=== PATIENT | male | born 1990 | race Caucasian/White ===

== ENCOUNTER 2023-09-02 18:59 | Emergency (ER) | payer MEDICAID, SELFPAY ==
--- NOTE | ~2023-09-02 | CT_ITS ---
EXAMINATION: CT ABDOMEN AND PELVIS WITHOUT CONTRAST CLINICAL INFORMATION: Right flank pain. COMPARISON: None available. TECHNIQUE: Multidetector volumetric imaging was performed from the superior aspect of the liver through the pubic symphysis. Sagittal and coronal reformatted images were obtained on the technologist's workstation. This CT examination was performed using dose optimization techniques as appropriate, variously including the following: *Automated exposure control *Adjustment of mA and/or kV according to patient size (this includes techniques or standardized protocols for targeted exams where dose is matched to indication/reason for exam; i.e. extremities or head) *Use of iterative reconstruction technique DLP: 376 mGy-cm FINDINGS: LUNG BASES: The visualized lung bases are unremarkable. LIVER, GALLBLADDER, AND BILIARY TREE: The liver is normal in size, shape, and attenuation. No focal hepatic lesion or biliary ductal dilatation is present. The gallbladder is unremarkable with no evidence of radiopaque gallstones, gallbladder wall thickening, or obvious pericholecystic inflammatory changes. PANCREAS: Unremarkable. SPLEEN: Unremarkable. ADRENAL GLANDS: Unremarkable. KIDNEYS AND URETERS: The kidneys are normal in size, shape, and attenuation. There is a 2.8 cm fluid attenuation, simple appearing right renal cyst in the lower pole. No recommended imaging follow-up. No hydronephrosis, hydroureter, or calculi seen. No perinephric stranding. BLADDER: Unremarkable. GASTROINTESTINAL TRACT: Stomach, small bowel, and colon are normal in caliber. Moderate volume of stool throughout the colon. No bowel wall thickening or surrounding inflammatory changes. Appendix is normal. No intraperitoneal free fluid or free air. ABDOMINAL WALL: No significant hernia is appreciated. LYMPH NODES: Normal. VASCULAR: Unremarkable. PELVIC VISCERA: Unremarkable. OSSEOUS STRUCTURES: Unremarkable. CT/CT abdomen pelvis wo IV con IMPRESSION: No acute intra-abdominal or intrapelvic abnormalities. Moderate volume of stool throughout the colon. Fleischner guidelines were followed.
--- NOTE | ~2023-09-02 | XR_ITS ---
EXAMINATION: XR LUMBOSACRAL SPINE CLINICAL INFORMATION: Lower back pain. COMPARISON: None available. TECHNIQUE: Three views of the lumbosacral spine. FINDINGS: Straightening of the normal lumbar lordosis which may be positional or related to muscle spasm. No acute fracture or subluxation. No loss of vertebral body or intervertebral disc height. No concerning lytic or blastic osseous lesion. No abnormal soft tissue calcification. XR/XR lumbar spine 2-3V IMPRESSION: Straightening of the normal lumbar lordosis which may be positional or related muscle spasm.
[2023-09-02 19:00] VITALS: BP 115/67; PULSE 64; RESP 16; TEMP 37.4; O2SAT 99; BMI 19.6
--- NOTE | 2023-09-02 19:02 | ED.GENADULT ---
HPI - General Adult General Chief complaint: Back Pain/Injury Stated complaint: lower back pain Time Seen by Provider: 09/02/23 21:08 Related Data Allergies Allergy/AdvReac Type Severity Reaction Status Date / Time No Known Allergies Allergy Unverified 06/30/20 16:13 [facility] Social History Alcohol intake: never Smoked in Last 30 Days: No Use of substances other than those prescribed or required for medical reasons: No Advance Directives: No Advance Directives Information Provided: No Physical Exam ED Vital Signs: Vital Signs - 24 hr 09/02/23 19:00 09/02/23 21:31 09/03/23 00:16 Temperature 99.3 F 98.3 F 98.2 F Pulse Rate 64 76 72 Respiratory Rate 16 20 20 Blood Pressure 115/67 132/76 124/75 Pulse Oximetry 99 100 98 Oxygen Delivery Method Room Air Room Air Room Air BMI result Body Mass Index 19.6 Course Course Course Narrative: RME performed by Bev Conley PA-C. Patient is a 32 year old assigned male at presenting to the emergency department with right sided flank pain. Labs ordered. Patient placed back in the waiting room pending room availability and results. Patient was seen and dispositioned by Dr. Love. Please refer to his note from 09/02/2023. Medical Decision Making Lab Data 09/02/23 20:07 09/02/23 20:07 Labs: Lab Results 09/02/23 Range/Units 20:07 WBC 9.2 (4.8-10.8) X10*3/uL RBC 4.83 (4.60-5.80) X10*6/uL Hgb 14.3 (14.0-18.0) g/dl Hct 41.3 L (42.0-52.0) % MCV 85.5 (80.0-98.0) fL MCH 29.6 (27.0-33.0) pg MCHC 34.6 (31.0-36.0) g/dl RDW 12.7 (11.0-16.0) % Plt Count 227 (160-400) X10*3/uL MPV 10.7 (9.4-12.4) fL Immature Gran % (Auto) 0.3 (0.0-0.4) % Neut % (Auto) 74.0 H (45-73) % Lymph % (Auto) 16.0 L (20-40) % [place] % (Auto) 8.3 (2-11) % Eos % (Auto) 0.7 (0-4) % Baso % (Auto) 0.7 (0-2) % Lymph # (Auto) 1.5 (1.2-4.9) X10*3/uL [place] # (Auto) 0.8 (0.1-1.2) X10*3/uL Eos # (Auto) 0.1 (0.0-0.4) X10*3/uL Baso # (Auto) 0.1 (0.0-0.2) X10*3/uL Abs Immat Gran (auto) 0.03 (0.00-0.03) X10*3/uL Absolute Neuts (auto) 6.8 (2.0-8.3) x10*3/uL Absolute Nucleated RBC 0.000 (0.0-0.012) X10*3/uL Nucleated RBC % (auto) 0.0 (0.0-0.2) /100WBC Sodium 140 (135-145) mmol/L Potassium 4.1 (3.3-5.1) mmol/L Chloride 104 (96-108) mmol/L Carbon Dioxide 31 H (22-29) mmol/L Anion Gap 9 L (12-20) BUN 10 (9-16) mg/dL Creatinine 0.90 (0.5-1.4) mg/dL Estim Creat Clear Calc 111.3 Estimated GFR > 60 Random Glucose 88 (60-115) mg/dL Calcium 9.3 (8.4-10.2) mg/dL Magnesium 2.0 (1.6-2.6) mg/dL Total Bilirubin 0.4 (0.0-1.0) mg/dL AST 14 (5-37) U/L ALT 13 (0-40) U/L Alkaline Phosphatase 75 (39-117) U/L Total Protein 7.9 (6.5-8.0) g/dL Albumin 4.3 (3.5-5.0) g/dL Urine Color Yellow Urine Appearance Clear Urine pH 8.5 (5.0-9.0) Ur Specific [place] 1.015 (1.005-1.025) Urine Protein Negative (Neg-Trace) mg/dL Urine Glucose (UA) Negative (Negative) mg/dL Urine Ketones Negative (Negative) mg/dL Urine Blood Negative (Negative) Urine Nitrite Negative (Negative) Ur Leukocyte Esterase Negative (Negative) Discharge Plan Discharge Clinical Impression: Acute flank pain, Constipation Patient Disposition: Home, Self-Care Instructions: Flank Pain (ED) Referrals: Physician,None [Primary Care Provider] - 09/05/23 Interventions: ED Discharge Assessment Last Done: 09/03/23 00:33 Discharge Date/Time: 09/03/23 00:34
[2023-09-02 20:11] LABS: MANUAL DIFF FLAG NO
[2023-09-02 20:12] LABS: Basophils Absolute Auto 0.1 X10*3/uL (0.0-0.2); Basophils Percent Auto 0.7 % (0-2); Eosinophils Absolute Auto 0.1 X10*3/uL (0.0-0.4); Eosinophils Percent Auto 0.7 % (0-4); Hematocrit 41.3 % (42.0-52.0); Hemoglobin 14.3 g/dl (14.0-18.0); Imm Gran Abs Auto 0.03 X10*3/uL (0.00-0.03); Imm Gran Pct Auto 0.3 % (0.0-0.4); Lymphocytes Absolute Auto 1.5 X10*3/uL (1.2-4.9); Mean Corpuscular HGB Conc 34.6 g/dl (31.0-36.0); Mean Corpuscular Hemoglobin 29.6 pg (27.0-33.0); Mean Corpuscular Volume 85.5 fL (80.0-98.0); Mean Platelet Volume 10.7 fL (9.4-12.4); Monocytes Absolute Auto 0.8 X10*3/uL (0.1-1.2); Monocytes Percent Auto 8.3 % (2-11); Neutrophils Absolute Auto 6.8 x10*3/uL (2.0-8.3); Platelet Count 227 X10*3/uL (160-400); Red Blood Count 4.83 X10*6/uL (4.60-5.80); Red Cell Distribution Width 12.7 % (11.0-16.0); White Blood Count 9.2 X10*3/uL (4.8-10.8)
[2023-09-02 20:14] LABS: Appearance Urine Clear; Color Urine Yellow; Glucose Urine UA Negative (Negative); Leukocyte Esterase Urine Negative (Negative); Nitrite Urine Negative (Negative); PH 8.5 (5.0-9.0); Specific Gravity - Urine 1.015 (1.005-1.025); Urine Blood Negative (Negative); Urine Ketones Negative (Negative); Urine Protein Negative (Neg-Trace)
[2023-09-02 20:25] LABS: Alanine Aminotransferase 13 U/L (0-40); Albumin Level 4.3 g/dL (3.5-5.0); Alkaline Phosphatase 75 U/L (39-117); Anion Gap 9 (12-20); Aspartate Amino Transferase 14 U/L (5-37); Bilirubin Total 0.4 mg/dL (0.0-1.0); Blood Urea Nitrogen 10 mg/dL (9-16); Calcium 9.3 mg/dL (8.4-10.2); Carbon Dioxide 31 mmol/L (22-29); Chloride 104 mmol/L (96-108); Creatinine Clr Calc Pharmacy 111.3; Estimated Glomerular Filt Rate > 60; Glucose Random 88 mg/dL (60-115); Potassium 4.1 mmol/L (3.3-5.1); Sodium 140 mmol/L (135-145); Total Protein 7.9 g/dL (6.5-8.0)
[2023-09-02 21:31] VITALS: BP 132/76; PULSE 76; RESP 20; TEMP 36.8; O2SAT 100
--- NOTE | 2023-09-02 22:26 | ED.BACK ---
HPI - Back Pain/Injury General Chief Complaint: Back Pain/Injury Stated Complaint: lower back pain Time Seen by Provider: 09/02/23 21:08 History of Present Illness HPI Narrative: patient is 32 years old presented today with having right-sided flank pain. There is no nausea no more vomiting. Denies any difficulty urinating the pain is sharp. No coughing or congestion or upper respiratory symptoms. No radiation of the pain. No history of appendicitis or any surgery in the abdomen. Patient is from home. Related Data Allergies Allergy/AdvReac Type Severity Reaction Status Date / Time No Known Allergies Allergy Unverified 06/30/20 16:13 Review of Systems Review of Systems: Positive flank pain Yes all other systems are reviewed and are negative [facility] [place] Past Medical History Attestation statement: The following information was validated with the patient. Social History Social History Advance Directives: No Advance Directives Information Provided: No Physical Exam Vital Signs: Vital Signs: Last Vital Signs Temp 98.2 F 09/03/23 00:16 Pulse 72 09/03/23 00:16 Resp 20 09/03/23 00:16 BP 124/75 09/03/23 00:16 Pulse Ox 98 09/03/23 00:16 O2 Del Method Room Air 09/03/23 00:16 BMI result Body Mass Index 19.6 Appearance: Alert. Oriented X3. No acute distress. Eyes: Pupils equal, round and reactive to light. ENT: Pharynx normal. Neck: Normal inspection. Neck supple. No lymph nodes noted. No crepitus CVS: Normal heart rate and rhythm. Pulses normal. Normal S1 and S2 Respiratory: No respiratory distress. Breath sounds normal. No Wheezing. No rales Abdomen: Soft and nontender. No rigidity. No distention. good BS x4 Skin: Skin warm and dry. Normal skin color. Normal skin turgor. Extremities: No lower extremity edema. Neurovascular intact to all extremities. No Lacerations. No Rash Neuro: Oriented X 3. No motor deficit. No sensory deficit. Moving all extermities. No slurred speech Medical Decision Making Medical Decision Making MDM Narrative: CT scan of the abdomen pelvis showed no evidence of kidney stone. Patient's urine showed no evidence of infection. Patient's electrolytes are normal. Question moderate amount of stool noted. Will discharge patient home. Currently in stable condition. There is no evidence for obstruction abscess perforation on CT. Differential Diagnosis Differential Diagnoses: The differential diagnosis associated with the presentation includes Obstruction, abscess, perforation, flank pain, kidney stone, appendicitis Admission/Observation Consideration of admission/observation: Escalation of care including admission/observation considered Lab Data MDM Lab Attestation statement: I reviewed the patient's lab results. 09/02/23 20:07 09/02/23 20:07 Labs: Lab Results 09/02/23 Range/Units 20:07 WBC 9.2 (4.8-10.8) X10*3/uL RBC 4.83 (4.60-5.80) X10*6/uL Hgb 14.3 (14.0-18.0) g/dl Hct 41.3 L (42.0-52.0) % MCV 85.5 (80.0-98.0) fL MCH 29.6 (27.0-33.0) pg MCHC 34.6 (31.0-36.0) g/dl RDW 12.7 (11.0-16.0) % Plt Count 227 (160-400) X10*3/uL MPV 10.7 (9.4-12.4) fL Immature Gran % (Auto) 0.3 (0.0-0.4) % Neut % (Auto) 74.0 H (45-73) % Lymph % (Auto) 16.0 L (20-40) % [place] % (Auto) 8.3 (2-11) % Eos % (Auto) 0.7 (0-4) % Baso % (Auto) 0.7 (0-2) % Lymph # (Auto) 1.5 (1.2-4.9) X10*3/uL [place] # (Auto) 0.8 (0.1-1.2) X10*3/uL Eos # (Auto) 0.1 (0.0-0.4) X10*3/uL Baso # (Auto) 0.1 (0.0-0.2) X10*3/uL Abs Immat Gran (auto) 0.03 (0.00-0.03) X10*3/uL Absolute Neuts (auto) 6.8 (2.0-8.3) x10*3/uL Absolute Nucleated RBC 0.000 (0.0-0.012) X10*3/uL Nucleated RBC % (auto) 0.0 (0.0-0.2) /100WBC Sodium 140 (135-145) mmol/L Potassium 4.1 (3.3-5.1) mmol/L Chloride 104 (96-108) mmol/L Carbon Dioxide 31 H (22-29) mmol/L Anion Gap 9 L (12-20) BUN 10 (9-16) mg/dL Creatinine 0.90 (0.5-1.4) mg/dL Estim Creat Clear Calc 111.3 Estimated GFR > 60 Random Glucose 88 (60-115) mg/dL Calcium 9.3 (8.4-10.2) mg/dL Magnesium 2.0 (1.6-2.6) mg/dL Total Bilirubin 0.4 (0.0-1.0) mg/dL AST 14 (5-37) U/L ALT 13 (0-40) U/L Alkaline Phosphatase 75 (39-117) U/L Total Protein 7.9 (6.5-8.0) g/dL Albumin 4.3 (3.5-5.0) g/dL Urine Color Yellow Urine Appearance Clear Urine pH 8.5 (5.0-9.0) Ur Specific [place] 1.015 (1.005-1.025) Urine Protein Negative (Neg-Trace) mg/dL Urine Glucose (UA) Negative (Negative) mg/dL Urine Ketones Negative (Negative) mg/dL Urine Blood Negative (Negative) Urine Nitrite Negative (Negative) Ur Leukocyte Esterase Negative (Negative) Independent Interpretation I performed an independent interpretation of an: CT Scan Prescription Management I considered prescription management with: Antibiotic Discharge Plan Discharge Clinical Impression: Acute flank pain, Constipation Patient Disposition: Home, Self-Care Instructions: Flank Pain (ED) Referrals: Physician,None [Primary Care Provider] - 09/05/23
[2023-09-03 00:16] VITALS: BP 124/75; PULSE 72; RESP 20; TEMP 36.8; O2SAT 98
== END 2023-09-03 00:34 | disposition home or self-care (01) ==
PROVIDERS: Physician Assistant Medical; Emergency Provider Emergency Medicine Emergency Medical Services
DX: R10.9 Unspecified abdominal pain (principal); K59.00 Constipation, unspecified
CPT/HCPCS: 36415; 72100; 74176; 80053; 81003; 83735; 85025; 99284

== ENCOUNTER 2024-11-23 11:28 | Emergency (ER) | payer OTHER, SELFPAY ==
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
[2024-11-23 12:40] VITALS: BP 135/92; PULSE 59; RESP 18; TEMP 37.2; O2SAT 99; BMI 22.4
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
[2024-11-23 14:40] VITALS: BP 135/92; PULSE 59; RESP 18; TEMP 37.2; O2SAT 99
== END 2024-11-23 14:41 | disposition home or self-care (01) ==
PROVIDERS: Emergency Provider Emergency Medicine
DX: S39.012A Strain of muscle, fascia and tendon of lower back, initial encounter (principal); V43.52XA Car driver injured in collision with other type car in traffic accident, initial encounter; Y93.9 Activity, unspecified; Y92.410 Unspecified street and highway as the place of occurrence of the external cause; Y99.9 Unspecified external cause status; M54.2 Cervicalgia
CPT/HCPCS: 72100; 99282; 99283

== ENCOUNTER → 2024-11-23 12:41 | Outpatient (BNV) | payer SELFPAY | PROVIDERS: Emergency Provider Emergency Medicine; Visit Provider Radiology Diagnostic Radiology | DX: M54.50 Low back pain, unspecified (principal) | CPT/HCPCS: 72100 ==

== ENCOUNTER 2025-05-20 10:11 | Outpatient (REF) | payer OTHER, SELFPAY ==
--- NOTE | ~2025-05-20 | XR_ITS ---
EXAMINATION: XR LUMBAR SPINE 2-3 VIEWS HISTORY: chronic low back pain with sciatica COMPARISON: Comparison is made with the prior examination dated 11/23/2024. FINDINGS: AP, lateral, and coned down views of the lumbar spine are submitted. Osseous mineralization is normal. Five nonrib-bearing lumbar vertebral bodies are identified, maintaining normal height without evidence of fracture or spondylolisthesis. There is mild straightening of the normal cervical lordosis. The intervertebral disc spaces are preserved. The posterior elements are intact. The visualized paraspinal soft tissues are unremarkable. XR/XR lumbar spine 2-3V IMPRESSION: Mild straightening of the normal cervical lordosis. Otherwise unremarkable examination of the lumbar spine. Electronically signed by: Eric Vaughan MD 05/20/2025 11:03 AM EDT
--- OUTSIDE RECORDS SUMMARY | 2025-05-20 10:41 | XMS_ITS | Clinical Summary ---
Author Organization [employer] Address [address] [place] [address] Care Team Providers Care Senior Fire Protection Engineer Name Role Phone Jessica Vang CNP Primary Care Provider [phone] Allergies No known active allergies Medications albuterol 108 (90 Base) MCG/ACT inhalerIndication s:Mild intermittent asthma without complication Inhale 2 puffs every 4 (four) hours if needed for wheezing. 18 g 02/17/2025 02/18/20 26 Active Blood Pressure kitIndications:El evated BP without diagnosis of hypertension 1 kit 2 times daily. 1 kit 05/14/2025 Active Active Problems No known active problems Encounters Date Type Department Care Team Description 05/14/2025 1:00 PM EDT Office Visit [facility] [address] [place] [phone] Jessica Vang CNP Chronic bilateral low back pain with bilateral sciatica (Primary Dx); Elevated BP without diagnosis of hypertension 05/14/2025 Travel 05/13/2025 Telephone [facility] [address] [place] [phone] Jessica Vang CNP CHART PREP 05/05/2025 Telephone [facility] [address] [place] [address] [phone] Jessica Vang CNP CHART PREP 05/05/2025 Telephone [facility] [address] [place] [phone] Jessica Vang CNP Referral; Letter for School/Work 03/22/2025 Telephone [facility] [address] [place] [phone] Jessica Vang CNP 03/18/2025 Telephone [facility] [address] [place] [phone] Jessica Vang CNP 02/17/2025 9:15 AM EDT Office Visit [facility] [address] [place] [address] Jessica Vang CNP Encounter for physical examination (Primary Dx); Mild intermittent asthma without complication; Chronic bilateral low back pain with bilateral sciatica 02/17/2025 Travel from Last 3 Months Immunizations Immunization Administration Dates Next Due Td (adult), 5 Lf tetanus tox oid, preservative free, adsorbed 06/04/2015 Social History Tobacco Use Types Packs/Day Years Used Date Smoking Tobacco: Never Smokeless Tobacco: Never Tobacco Cessation:Counseling Given: Not Answered Depression Answer Date Recorded Patient Health Questionnaire-9 Score 12 02/17/2025 Patient Health Questionnaire-9 Score 12 02/17/2025 Last PHQ-9: Questionnaire Data Not on file 0 02/17/2025 Housing Stability Answer Date Recorded What is your housing situation today? I do not have housing (Staying with others, in a hotel, in a [place] [facility] [place], living outside on the street, on a beach, in a car, or in a park 02/17/[address] you li ve. Do you have problems with any of the following? None of the above 02/17/2025 Food Insecurity Answer Date Recorded Within the past 12 months, y ou worried that your food would run out before you got money to buy more: Never True 02/17/2025 Within the past 12 months,th e food you bought just didn't last and you didn't have enough money to get more: Never True 04/2025 Transportation Answer Date Recorded In the past 12 months, has l ack of transportation kept you from medical appts, meetings, work or from getting things needed for daily living? No 02/17/2025 Utilities Answer Date Recorded In the past 12 months, has t he electric, gas, oil or water company threatened to shut off services in your home? I am not sure 02/17/2025 Depression Answer Date Recorded Patient Health Questionnaire-2 Score 2 02/17/2025 Internet Access Answer Date Recorded Internet Access Q1 Yes 02/17/2025 Internet Access Q2 Not on file 02/17/2025 Sex and Gender Information Value Date Recorded Sex Assigned at Male 01/01/2025 12:13 PM EDT Legal Sex Male 11:07 AM EST Gender Identity Male 02/16/2025 9:16 AM EDT Sexual Orientation Straight 02/16/2025 9: 16 AM EDT Last Filed Vital Signs Vital Sign Reading Time Taken Comments Blood Pressure 142/82 05/14/2025 1:04 PM EDT Pulse 73 05/14/2025 1:04 PM EDT Temperature 36.1 C (97 F) 05/14/2025 1:04 PM EDT Respiratory Rate 18 05/14/2025 1:04 PM EDT Oxygen Saturation 99% 05/14/2025 1:04 PM EDT Inhaled Oxygen Concentration - - Weight 65.5 kg (144 lb 6.4 oz) 05/14/2025 1:04 P M EDT Height 183 cm (6' 0.05 ) 05/14/2025 1:04 PM EDT Body Mass Index 19.56 05/14/2025 1:04 PM EDT Plan of Treatment Upcoming Encounters Date Type Department Care Team (Late st Contact Info) Description 06/03/2025 3:30 PM EDT Clinical Support [facility] [address] [place] [phone] Health Maintenance Due Date Last Done Comments HIV Screening 1992 Family Planning (PISQ) 12/30/2007 HPV Vaccines (1 - Male 3-dos e series) 12/30/2007 Hepatitis C Screening 2010 Hepatitis B Vaccines (1 of 3 - 19+ 3-dose series) 12/30/2011 Pneumococcal Vaccine: Pediatrics (0 to 5 Years) and At-Risk Patients (6 to 49) Years (1 of 2 - PCV) 12/30/2011 DTaP/Tdap/Td Vaccines (1 - Tdap) 06/05/2015 06/04/2015 COVID-19 Vaccine (1 - 2023-2 5 season) 2024 Influenza Vaccine (#1) 2025 Depression Monitoring 08/20/2025 02/17/2025 , 02/17/2025 Alcohol/Substance Use Screening 02/17/2026 02/17/2025 Disability Screening 02/17/2026 02/17/2025 SDOH Screening 02/17/2026 02/17/2025 Tobacco Screening 05/14/2026 05/14/2025 Zoster Vaccines (1 of 2) 2042 RSV Patients and Patients Aged 60 years or older (1 - 1-dose 75+ series) 12/30/2067 HIB Vaccines Aged Out No longer eligi ble based on patient's age to complete this topic Hepatitis A Vaccines Aged Out No long er eligible based on patient's age to complete this topic IPV Vaccines Aged Out No longer eligi ble based on patient's age to complete this topic Meningococcal B Vaccine Aged Out No l onger eligible based on patient's age to complete this topic Meningococcal Vaccine Aged Out No yanira oneil eligible based on patient's age to complete this topic RSV under 20 months Aged Out No longe r eligible based on patient's age to complete this topic Rotavirus Vaccines Aged Out No longer eligible based on patient's age to complete this topic Insurance [facility] Care Teams Senior Fire Protection Engineer Relationship Specialty Start Date End Date Jessica Vang CNP [address] [place] [phone] PCP - General Family Medicine 02/17/25
== END 2025-05-20 10:12 | disposition home or self-care (01) ==
LOC: HO.HHCX 10:11
DX: M54.42 Lumbago with sciatica, left side (principal); M54.41 Lumbago with sciatica, right side; G89.29 Other chronic pain
CPT/HCPCS: 72100

== ENCOUNTER → 2025-05-20 10:18 | Outpatient (BNV) | payer OTHER, SELFPAY | PROVIDERS: Visit Provider Radiology Diagnostic Radiology | DX: M54.50 Low back pain, unspecified (principal) | CPT/HCPCS: 72100 ==